=== PATIENT | male | born 1980 | race Two or more races ===

== ENCOUNTER 2018-09-19 02:12 | Emergency (ER) | payer SELFPAY ==
--- NOTE | 2018-09-19 03:53 | ED PDOC ---
HPI: Psych/Substance Abuse Time Seen by Provider: 09/19/18 02:23 Chief Complaint (Nursing): Alcohol Ingestion Chief Complaint (Provider): Alcohol Ingestion ED Caveat: Intoxicated History Per: Patient History/Exam Limitations: intoxication Additional Complaint(s): 37 years old male brought to the ER by EMS for supposed intoxication. Patient denies this and states that he was just sleeping and was brought in for falling asleep in public. Denies medical history, denies drug use. Past Medical History Reviewed: Historical Data, Nursing Documentation, Vital Signs Vital Signs: Last Vital Signs Temp 96.9 F L 09/19/18 02:13 Pulse 95 H 09/19/18 02:13 Resp 16 09/19/18 02:13 BP 90/59 L 09/19/18 02:13 Pulse Ox 93 L 09/19/18 02:13 - Medical History Other PMH: Unknown - Surgical History Other surgeries: Unknwon - Family History Family History: States: Unknown Family Hx - Allergies Allergies/Adverse Reactions: Allergies Allergy/AdvReac Type Severity Reaction Status Date / Time No Known Allergies Allergy Verified 09/19/18 02:14 Review of Systems ROS Statement: Except As Marked, All Systems Reviewed And Found Negative Physical Exam - Reviewed Nursing Documentation Reviewed: Yes Vital Signs Reviewed: Yes - Physical Exam Appears: Positive for: No Acute Distress (Drowzy and appears under the influence) Head Exam: Positive for: ATRAUMATIC, NORMOCEPHALIC Skin: Positive for: Normal Color, Warm, Dry Eye Exam: Positive for: Normal appearance, EOMI, PERRL Neck: Positive for: Normal, Painless ROM, Supple Cardiovascular/Chest: Positive for: Regular Rate, Rhythm. Negative for: Murmur Respiratory: Positive for: Normal Breath Sounds. Negative for: Respiratory Distress Gastrointestinal/Abdominal: Positive for: Normal Exam, Soft. Negative for: Tenderness Back: Positive for: Normal Inspection Extremity: Positive for: Normal ROM. Negative for: Pedal Edema, Deformity - ECG O2 Sat by Pulse Oximetry: 93 (RA) Pulse Ox Interpretation: Abnormal Medical Decision Making Medical Decision Making: Time: 335 A/P: supposed alcohol or drug abuse, possibly homeless --Patient is stable -No signs of trauma 600 --Patient has negative alcohol level --Currently awake, alert, steady gait --Patient states that he was drowsy earlier because he was very tired and that he lives in the [facility] --Patient's vitals stable, HR 95, saturaint 95% on RA --Will discharge Scribe Attestation: Documented by Cynthia Richards, acting as a scribe for Tonio Chester MD. Provider Scribe Attestation: All medical record entries made by the Scribe were at my direction and personally dictated by me. I have reviewed the chart and agree that the record accurately reflects my personal performance of the history, physical exam, medical decision making, and the department course for this patient. I have also personally directed, reviewed, and agree with the discharge instructions and disposition. Disposition - Clinical Impression Clinical Impression: Homeless, Fatigue - Patient ED Disposition Is Patient to be Admitted: No - Disposition Referrals: [facility] [Outside] Disposition: Routine/Home Disposition Time: 06:06 Condition: GOOD Instructions: Fatigue (DC) Forms: [employer] ([place]ian)
[2018-09-19 06:45] VITALS: BP 123/80; PULSE 96; RESP 17; TEMP 98.4; O2SAT 99
== END 2018-09-19 06:42 | disposition home or self-care (01) ==
LOC: H.ER 02:12
DX: R53.83 Other fatigue (principal); Z59.0 Homelessness
CPT/HCPCS: 82948; 99282; G0480